=== PATIENT | female | born 2000 | race Caucasian/White ===

== ENCOUNTER 2023-08-15 06:58 | Outpatient (OUT) | payer OTHER, SELFPAY ==
--- NOTE | 2023-08-15 | CT_ITS ---
[address] [address] Patient Name: TERESO GOODE MRN: [id number] date: 2000 Sex: F Assigned Patient Location: CT Current Patient Location: Accession/Order Number: [id number] Exam Date: 08/15/2023 08:20 Report Date: 08/16/2023 09:53 At the request of: KRYSTEN MORAES Procedure: CT abdomen pelvis w con CT ABDOMEN AND PELVIS WITH CONTRAST: INDICATION: LLQ Pain R10.32. COMPARISON: None. TECHNIQUE: Helical CT images of the abdomen and pelvis were obtained after the administration of intravenous contrast. Dose reduction techniques were achieved by using automated exposure control and/or adjustment of mA and/or kV according to patient size and/or use of iterative reconstruction technique. FINDINGS: LOWER CHEST: The visualized lung bases are clear. LIVER: Unremarkable. GALLBLADDER AND BILIARY SYSTEM: Unremarkable. SPLEEN: Unremarkable. PANCREAS: Unremarkable. ADRENAL GLANDS: Unremarkable. KIDNEYS AND URETERS: The kidneys enhance symmetrically. There is no hydronephrosis. No focal renal lesions. BLADDER: Unremarkable. GASTROINTESTINAL TRACT: No evidence of bowel obstruction or colitis. Normal appendix. Moderate amount of stool in the left colon. VASCULATURE: Unremarkable. RETROPERITONEUM AND LYMPH NODES: No lymphadenopathy or mass. PERITONEUM/MESENTERY: No abdominal ascites. No free air. PELVIS: There is a partially collapsed left ovarian cyst measuring 2.3 x 1.2 cm. Small amount of free fluid in the cul-de-sac. No pelvic lymphadenopathy. BODY WALL: Tiny fat-containing umbilical hernia. BONES: No acute abnormality. CT/CT abdomen pelvis w con IMPRESSION: 1. Partially collapsed left ovarian cyst measuring 2.3 x 1.2 cm. Small amount of free fluid in the cul-de-sac. 2. Constipation. Electronically authenticated by: MAE CAMACHO Date: 08/16/2023 09:53
== END 2023-08-15 06:59 | disposition home or self-care (01) ==
PROVIDERS: PCP Family Medicine; Visit Provider Family Medicine
DX: R10.32 Left lower quadrant pain (principal); N83.292 Other ovarian cyst, left side; K59.00 Constipation, unspecified
CPT/HCPCS: 74177; Q9967